=== PATIENT | female | born 1995 | race Caucasian/White ===

== ENCOUNTER 2023-12-22 23:44 | Emergency (ER) | payer MEDICAID, OTHER ==
[~2023-12-22] VITALS: Ht 160 cm; Wt 142.9 kg
[2023-12-23 00:04] VITALS: BP 146/72; PULSE 100; RESP 16; TEMP 98.1; O2SAT 100
[2023-12-23 00:52] LABS: APPEARANCE,URINE HAZY (CLEAR); BILIRUBIN,URINE NEGATIVE (NEGATIVE); BLOOD, URINE 3+ (NEGATIVE); COLOR,URINE YELLOW (YELLOW); LEUKOCYTE ESTERASE ,URINE 1+ (NEGATIVE); NITRITE, URINE NEGATIVE (NEGATIVE); PROTEIN,URINE TRACE (NEGATIVE); UGLUCOSE NEGATIVE (NEGATIVE)
[2023-12-23 01:18] LABS: BACTERIA,URINE 1+ /HPF (None Seen); RBC,URINE TOO NUMEROUS TO COUN /HPF (0-5)
[2023-12-23] MEDS ORDERED: CIPR500T4 PO (01:49)
[2023-12-23] MEDS ORDERED: ONDA8TAB87 PO (01:49)
[2023-12-23] MEDS ORDERED: IBUP-2213 PO (01:49)
== END 2023-12-23 02:45 | disposition home or self-care (01) ==
LOC: MED 23:44
DX: N39.0 Urinary tract infection, site not specified (principal); R50.9 Fever, unspecified; R03.0 Elevated blood-pressure reading, without diagnosis of hypertension; Z90.49 Acquired absence of other specified parts of digestive tract
CPT/HCPCS: 81001; 81025; 87086; 99283